=== PATIENT | female | born 1935 | race Caucasian/White ===

== ENCOUNTER → 2021-10-25 | Day surgery (SDC) | payer OTHER, MEDICARE ==
[~2021-10-25] VITALS: Ht 160 cm; Wt 68.5 kg
[~2021-10-25] MED LIST: B COMPLEX1 EACH PO; CALCIUM500 MG PO; CIPROFLOXACIN500 M1 PO; FLONASE 0.05%50 MCG NARES; HYDROCHLOROTHIA25 M1 PO; MAGNESIUM500 MG PO; PRINIVIL40 MG PO; PROTONIX40 M2 PO; VITAMIN D375 MCG PO; WARFARIN SODIUM5 MG PO; ZOLOFT 50 MG TA50 MG PO
--- NOTE | ~2021-10-25 | O ---
[facility] [place] [address] OPERATIVE REPORT Name: RONAK MARADIAGA Room #: [place] [facility]#: [id number] Admission: 10/25/21 Attend Phys: Jose Armando Fields MD Discharge: Date of : [birth year] Report #: [id number] THIS REPORT FOR: cc: Alonso Rush MD, Eric K. MD Quinn,Jose Armando Elaine MD ~ DATE OF SERVICE: 10/25/2021 PREOPERATIVE DIAGNOSES: 1. Suspected rupture, right breast implant following previous reconstruction. 2. Multiple Z-plasty correction, presternal skin contracture. POSTOPERATIVE DIAGNOSES: 1. Suspected rupture, right breast implant following previous reconstruction. 2. Multiple Z-plasty correction, presternal skin contracture. PROCEDURES: 1. Revision right breast reconstruction with removal and replacement of silicone gel implant, replacing with Lenore MemoryGel breast implant, smooth, round, ultra-high profile implant, catalog #[id number] containing 650 mL of gel silicone as previously. 2. Multiple Z-plasty correction presternal skin contracture. SURGEON: Jose Armando Fields MD ANESTHESIA: General. ESTIMATED BLOOD LOSS: None. DRAINS: None. COMPLICATIONS: None. NEEDLE, SPONGE, INSTRUMENT COUNTS: Correct. INDICATIONS FOR PROCEDURE: The patient is an 85-year-old white female who presents following previous breast reconstruction. She has been told recently with the changes in the appearance of her breast and other x-ray studies suggesting implant rupture. The patient presents now for revision. Understands the risks and complications including bleeding, infection, scarring, possible recurrent deformity, possible needing further surgery, also the possibility that the implant is truly not ruptured. DESCRIPTION OF PROCEDURE: The patient was taken to the operating room after being marked in the holding area. The previous inframammary scar was outlined, infiltrated with local, prepped and draped. Incision was created. The implant [facility] [address] [place] [address] OPERATIVE REPORT Name: RONAK MARADIAGA Room #: REG [facility]..#: [id number] Admission: 10/25/21 Attend Phys: Jose Armando Fields MD Discharge: Date of : [birth year] Report #: [id number] was removed intact. There were many signs within the capsule that suggested a previous hematoma had occurred, which was our original thought. There was no residual fluid or blood noted in the pocket of any significance. Implant was removed. The pocket was copiously irrigated. There was a significant tethering to the presternal skin that developed most recently with the swelling of the implant itself. The sizer was inserted. There was still some tightness to the pocket. Therefore, the sizer was removed. The open capsulotomy carried out circumferentially in all areas and then the sizers were replaced and the tension of the wound was then much improved. There was no tension on the closure later, which was affected after the sizer was removed. The pocket was copiously irrigated. Hemostasis was excellent. The permanent insertion of the implant with a funnel no-touch technique. Implant in place, wounds closed with 3 layers of 3-0 Monocryl interrupted, 5-0 nylons and Steri-Strips later applied. The 2 small Z-plasties were applied to the presternal skin deformity and rotated into place. They were then closed with multiple 5-0 Monocryl and 5-0 nylon sutures. Neosporin ointment applied to these wounds. The patient tolerated the procedure well. Occlusive bulky dressings and Zoltan wrap applied. The patient discharged to recovery room and at home with written and verbal instructions of care and followup. She has prescriptions already filled at home. She is to call in the meantime with any problems at all. By: 1211 [id number] Jose Armando Fields MD /nt
[2021-10-25 11:20] VITALS: BP 155/65
[2021-10-25 12:27] LABS: HEMATOCRIT 35.2 % (37.0-47.0); HEMOGLOBIN 11.7 gm/dL (12.0-15.0)
--- NOTE | 2021-10-26 07:42 | EKG ---
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 : 1935 Requested By: Jose Armando Fields Order Number: [id number] MD: Kashmir Mack Measurements Intervals Lester Rate: 70 P: [place]: QRS: -57 QRSD: 169 T: 105 QT: 478 QTc: 516 Interpretive Statements Afib/flutter and ventricular-paced rhythm No further analysis attempted due to paced rhythm No previous ECG available for comparison Electronically Signed On 10-26-2021 7:42:03 ENROBER TENDER by Kashmir Mack [email or web address] <ELECTRONICALLY SIGNED> By: Kashmir Mack MD, [facility] 10/26/21 0742 1132 1132 Kashmir Mack MD, FACC /EPI
== END | disposition home or self-care (01) ==
LOC: OR 09:49
PROVIDERS: ATTEND Specialist
DX: T85.49XA Other mechanical complication of breast prosthesis and implant, initial encounter (principal); L90.5 Scar conditions and fibrosis of skin; J43.9 Emphysema, unspecified; F41.9 Anxiety disorder, unspecified; K21.9 Gastro-esophageal reflux disease without esophagitis; Z98.890 Other specified postprocedural states; Z79.899 Other long term (current) drug therapy; Z96.653 Presence of artificial knee joint, bilateral; Z90.710 Acquired absence of both cervix and uterus; Z87.891 Personal history of nicotine dependence; Z85.3 Personal history of malignant neoplasm of breast; Z90.49 Acquired absence of other specified parts of digestive tract; Z96.1 Presence of intraocular lens; Z95.0 Presence of cardiac pacemaker; Z20.822 Contact with and (suspected) exposure to COVID-19; Y83.8 Other surgical procedures as the cause of abnormal reaction of the patient, or of later complication, without mention of misadventure at the time of the procedure; Z88.8 Allergy status to other drugs, medicaments and biological substances
CPT/HCPCS: 50010; 50101; 50386; 50403; 53040; 56525; 56526; 56527; 59122; 59125; 62110; 62900; 70005